=== PATIENT | female | born 1955 | race Caucasian/White ===

== ENCOUNTER 2024-07-10 11:05 | Inpatient (IN) | payer OTHER ==
[~2024-07-10] VITALS: Ht 170.2 cm; Wt 50.0 kg
[~2024-07-10 11:05] MED LIST: ACET500 PO; DOCU100 PO; ENOX40I SC; LEVSOD100 PO; LEVSOD88 PO; Lasix20 MG PO; OXYC10ER; ROXICODONE5 MG PO
[2024-07-10] MEDS ORDERED: NS 1,000 ML IV SCH ×3 (11:15→14:00)
[2024-07-10 11:35] LABS: BASOPHILS ABSOLUTE AUTO 0.08 K/mm3 (0.00-0.23); BASOPHILS PERCENT AUTO 2 % (0-2); EOSINOPHILS ABSOLUTE AUTO 0.16 K/mm3 (0.00-0.68); EOSINOPHILS PERCENT AUTO 5 % (0-6); Hematocrit 34.6 % (33.0-51.0); Hemoglobin 11.3 g/dL (11.5-16.0); IMMATURE GRAN ABSOLUTE AUTO 0.02 K/mm3 (0.00-0.10); IMMATURE GRAN PERCENT AUTO 1 % (0-1); LYMPHOCYTES PERCENT AUTO 25 % (21-46); MONOCYTES ABSOLUTE AUTO 0.45 K/mm3 (0.16-1.47); MONOCYTES PERCENT AUTO 14 % (4-13); Mean Corpuscular HGB 31.8 pg (26.0-34.0); Mean Corpuscular HGB Conc 32.7 g/dL (31.5-36.5); Mean Corpuscular Volume 98 fL (80-100); Mean Platelet Volume 12.3 fL (9.1-12.4); NEUTROPHILS ABSOLUTE AUTO 1.76 K/mm3 (1.96-9.15); NEUTROPHILS PERCENT AUTO 54 % (41-73); Platelet Count 106 K/mm3 (150-400); RDW Coefficient Variation 14.8 % (11.7-14.2); Red Blood Cell Count 3.55 M/mm3 (3.80-5.20); White Blood Cell Count 3.27 K/mm3 (4.00-11.30)
[2024-07-10 11:56] LABS: Base Excess Venous 5.1 mmol/L; PCO2 Venous 49.6 mmHg (38-42); pH Blood Venous 7.39 (7.34-7.37)
[2024-07-10 12:01] LABS: Albumin, Blood 3.6 g/dL (3.4-5.0); Bilirubin, Total 0.6 mg/dL (0.1-1.0); Bun/Creatinine Ratio 16.3 (12.0-20.0); Calcium, Blood 9.6 mg/dL (8.5-10.1); Creatinine, Blood 2.46 mg/dL (0.40-1.00); Globulin, Blood 3.5 g/dL (2.2-4.0); Magnesium, Blood 2.2 mg/dL (1.6-2.4); Potassium, Blood 3.5 mmol/L (3.5-5.5); Total Protein, Blood 7.1 g/dL (6.4-8.2)
[2024-07-10 12:15] LABS: Source, Urine Clean Catch
[2024-07-10 12:21] LABS: Appearance, Urine Hazy (Clear); Bilirubin, Urine Neg (Neg); Blood, Urine 2+ (Neg); Color, Urine Yellow (P-Yellow); Glucose Qualitative, Urine 1+ (Neg); Ketones, Urine Neg (Neg); Leukocyte Esterase, Urine 3+ (Neg); Nitrite, Urine Neg (Neg); Protein, Urine 2+ (Neg); Urobilinogen, Urine NORM (Normal)
[2024-07-10] MEDS ORDERED: CefTRIAXone Sodium 1,000 MG in NS 50 ML IV ONE (12:25)
[2024-07-10 13:18] LABS: White Blood Cells, Urine TNTC /hpf (0-5)
[2024-07-10 13:19] LABS: Bacteria Many /hpf; Squamous Epithelial Cells Rare /hpf (Few)
[2024-07-10] MEDS ORDERED: Acetaminophen 325 MG TABLET PO PRN (13:25)
[2024-07-10] MEDS ORDERED: FLU VACC TS2024-25(6MOS UP)/PF 45 MCG/0.5 ML SYRINGE IM SCH (13:25)
[2024-07-10 14:45] LABS: Influenza A, PCR NEGATIVE (NEGATIVE); Influenza B, PCR NEGATIVE (NEGATIVE); Resp Syncytial Virus, PCR NEGATIVE (NEGATIVE); SARS-Cov-2 (COVID-19) PCR, MMC NEGATIVE (NEGATIVE)
[2024-07-10 16:38] VITALS: BP 124/88
[2024-07-10 19:40] VITALS: BP 122/76
[2024-07-11 02:55] VITALS: BP 109/80
--- NOTE | 2024-07-11 04:38 | NUR ---
SHIFT SUMMARY PT IS A&O X 3-4. PT APPEARS CONFUSED AT TIMES. PT APPEARS AGITATED TOWARDS STAFF DURING EARLY AM HRS. REASSURED PER STAFF, EASILY REDIRECTABLE. PT IS INCONTINENT OF STOOL AND URINE. ATTENDS IN PLACE. PT USING CALL LIGHT FEW TIMES TO BE ASSISTED TO BEDSIDE COMMODE. WHEN STAFF ANSWERING CALL, PT REPLIES/STATES "NOT ME." PT DENIED NEED FOR COMMODE/STAFF ASSISTANCE. NS INFUSING ORDERED. TELE: V-PACED@75. PT IS SLIGHTLY [place]. PT DENIES PAIN DURING THIS SHIFT. BED ALARM FOR SAFETY. BED AT THE LOWEST POSITION, CALL LIGHT WITHIN REACH. NO ACUTE EVENTS/DISTRESS NOTED/REPORED DURING THIS SHIFT.
[2024-07-11 07:15] VITALS: BP 117/85
[2024-07-11 07:26] LABS: Bun/Creatinine Ratio 16.4 (12.0-20.0); Calcium, Blood 8.9 mg/dL (8.5-10.1); Creatinine, Blood 2.32 mg/dL (0.40-1.00); Potassium, Blood 3.7 mmol/L (3.5-5.5)
[2024-07-11] MEDS ORDERED: Levothyroxine Sodium 0.088 MG Tab PO SCH (08:00)
[2024-07-11] MEDS ORDERED: Heparin Sodium,Porcine 5,000 UNIT/0.5 ML SDV SC SCH (09:00)
[2024-07-11] MEDS ORDERED: CefTRIAXone Sodium 1,000 MG in NS 100 ML IV SCH (09:00)
[2024-07-11 11:47] LABS: Free Thyroxine 0.57 ng/dL (0.70-1.60); Triiodothyronine, Free 0.82 pg/mL (2.18-3.98)
[2024-07-11] MEDS ORDERED: FURO40 PO (14:45)
[2024-07-11] MEDS ORDERED: LEVSOD100 PO (14:45)
[2024-07-11] MEDS ORDERED: ELIQUIS5 M2 PO (14:46)
[2024-07-11] MEDS ORDERED: Carvedilol12.5 MG PO (14:46)
[2024-07-11] MEDS ORDERED: JARDIANCE25 MG PO (14:46)
[2024-07-11] MEDS ORDERED: ENTRESTO 24 MG1 EACH PO (14:46)
[2024-07-11] MEDS ORDERED: SPIR25 PO (14:46)
[2024-07-11 16:35] VITALS: BP 102/75
--- NOTE | 2024-07-11 18:39 | NUR ---
SHIFT SUMMARY PATIENT A/OX2 THSI SHIFT, FORGETFUL AND INTERMITTENTLY CONFUSED. ECHO COMPLETED TODAY, RENAL ULTRASOUND OBTAINED. PATIENT PARTICIPATED WITH PT AND ABLE TO WALK WITH NURSING STAFF MULTIPLE TIMES THROUGHOUT THE HALLWAYS, 1 PERSON ASSIST. PATIENT ALSO PROVIDED WITH RECLINER WHICH SHE WAS UP IN FOR MEAL TIME. NO OTHER CONCERNS AT THIS TIME.
[2024-07-11 19:12] VITALS: BP 111/73
[2024-07-11] MEDS ORDERED: Apixaban 5 MG Tab PO SCH (21:00)
[2024-07-12 03:22] VITALS: BP 111/79
--- NOTE | 2024-07-12 04:02 | NUR ---
SHIFT SUMMARY PT IS A&O X2-3, CONFUSED AT TIMES, COOPERATIVE WITH CARE. BED ALARM FOR SAFETY. PT IS CONTINENT/INCONTINENT, 1-PERSON ASSIST TO BEDSIDE COMMODE. TELE:AV-PACED @60. PT DENIES PAIN AND DISCOMFORT. NO ACUTE EVENTS DURING THIS SHIFT. PT RESTED APPROXIMATELY 5-6HRS DURING THE NIGHT HRS. PT IS ABLE TO MAKE HER NEEDS KNOWN, CALL LIGHT WITHIN REACH, BED AT THE LOWEST POSITION.
[2024-07-12] MEDS ORDERED: Levothyroxine Sodium 0.1 MG Tab PO SCH (06:00)
[2024-07-12] MEDS ORDERED: Levothyroxine Sodium 0.112 MG Tab PO SCH (06:00)
[2024-07-12 06:25] LABS: Bun/Creatinine Ratio 23.2 (12.0-20.0); Creatinine, Blood 1.77 mg/dL (0.40-1.00); Potassium, Blood 3.8 mmol/L (3.5-5.5)
[2024-07-12 07:49] VITALS: BP 111/73
[2024-07-12] MEDS ORDERED: Empagliflozin 25 MG TAB PO SCH (09:00)
[2024-07-12] MEDS ORDERED: Metoprolol Succinate 25 MG TABCR PO SCH ×2 (09:00)
[2024-07-12] MEDS ORDERED: Ciprofloxacin 500 MG Tab PO SCH (09:00)
[2024-07-12] MEDS ORDERED: ELIQUIS2.5 MG PO (13:26)
[2024-07-12] MEDS ORDERED: CIPR500 PO (13:28)
[2024-07-12] MEDS ORDERED: METO25ER PO (13:29)
[2024-07-12] MEDS ORDERED: FURO20 PO (13:30)
[2024-07-12] MEDS ORDERED: LEVSOD112 PO (13:30)
--- NOTE | 2024-07-12 15:01 | NUR ---
PATIENT WITH DISCHARGE ORDERS. CALLED PATIENT'S SISTER, MAK, TO NOTIFY HER AND LEFT MESSAGE. CALLED MULTIPLE TIMES THIS SHIFT IN ORDER TO SCHEDULE TRANSPORTATION FOR PATIENT TO DISCHARGE BUT HAVE NOT MADE CONTACT.
--- NOTE | 2024-07-12 17:25 | NUR ---
DISCHARGE NOTE RECIEVED TELEPHONE CALL FROM PATIENT'S SISTER, MAK, AND SHE STATED THE PATIENT'S CAREGIVER IS BRANDIN CARTERAl CASTREJON. PATIENT AND SISTER, MAK, REQUEST THAT GISELA BE ADDED TO PATIENT'S LIST OF CONTACTS. GISELA CALLED TO INFORM THAT PATIENT WAS READY FOR DISCHARGE. PIV AND TELEMETRY REMOVED PRIOR TO DISCHARGE. MEDICATION FAXED TO [facility]. MEDICATION CHANGES AND FOLLOW UP APPOINTMENTS DISCUSSED WITH PATIENT AND CAREGIVER AND BOTH AGREEABLE. CAREGIVER, GISELA, STATES THAT CARDIOLOGY APPOINTMENT IS ALREADY SCHEDULED FOR NEXT WEEK. NO OTHER CONCERNS AT TIME OF DISCHARGE. PATIENT ASSISTED TO FAMILY VEHICLE VIA WHEELCHAIR BY [facility] STAFF.
== END 2024-07-12 17:10 | disposition home health service (06) | DRG 682 ==
LOC: ER 11:05 → MEDS 14:28
PROVIDERS: Student in an Organized Health Care Education/Training Program; ADMIT Internal Medicine
DX: N17.9 Acute kidney failure, unspecified (principal); A41.51 Sepsis due to Escherichia coli [E. coli]; J96.01 Acute respiratory failure with hypoxia; R65.20 Severe sepsis without septic shock; I13.0 Hypertensive heart and chronic kidney disease with heart failure and stage 1 through stage 4 chronic kidney disease, or unspecified chronic kidney disease; I50.22 Chronic systolic (congestive) heart failure; N39.0 Urinary tract infection, site not specified; L03.115 Cellulitis of right lower limb; I48.91 Unspecified atrial fibrillation; D70.9 Neutropenia, unspecified; N18.30 Chronic kidney disease, stage 3 unspecified; E03.9 Hypothyroidism, unspecified; F17.210 Nicotine dependence, cigarettes, uncomplicated; Z71.6 Tobacco abuse counseling; Z88.5 Allergy status to narcotic agent; Z90.49 Acquired absence of other specified parts of digestive tract; Z95.0 Presence of cardiac pacemaker; Z98.890 Other specified postprocedural states; Z87.81 Personal history of (healed) traumatic fracture; Z79.890 Hormone replacement therapy; Z79.899 Other long term (current) drug therapy
CPT/HCPCS: 0241U; 36415; 71045; 76770; 80048; 80053; 81001; 82570; 82803; 83605; 83735; 83880; 84145; 84300; 84439; 84443; 84481; 84484; 85025; 85379; 87040; 87077; 87086; 87147; 87186; 93005; 93010; 97110; 97116; 97162; 99285-25; A9270; C8929; J0696; J1644; J7030; Q9957

== ENCOUNTER 2024-08-30 18:01 | Emergency (ER) | payer OTHER ==
[~2024-08-30] VITALS: Ht 170.2 cm; Wt 54.4 kg
[~2024-08-30 18:01] MED LIST changes: +CIPR500 PO; +Carvedilol12.5 MG PO; +ELIQUIS2.5 MG PO; +ELIQUIS5 M2 PO; +ENTRESTO 24 MG1 EACH PO; +FURO20 PO; +FURO40 PO; +JARDIANCE25 MG PO; +LEVSOD112 PO; +METO25ER PO; +SPIR25 PO
[2024-08-30 18:23] VITALS: BP 132/78
[2024-08-30 18:35] LABS: BASOPHILS ABSOLUTE AUTO 0.06 K/mm3 (0.00-0.23); BASOPHILS PERCENT AUTO 2 % (0-2); EOSINOPHILS ABSOLUTE AUTO 0.09 K/mm3 (0.00-0.68); EOSINOPHILS PERCENT AUTO 2 % (0-6); Hematocrit 32.6 % (33.0-51.0); Hemoglobin 10.3 g/dL (11.5-16.0); IMMATURE GRAN ABSOLUTE AUTO 0.02 K/mm3 (0.00-0.10); IMMATURE GRAN PERCENT AUTO 1 % (0-1); LYMPHOCYTES ABSOLUTE AUTO 1.27 K/mm3 (0.84-5.20); LYMPHOCYTES PERCENT AUTO 32 % (21-46); MONOCYTES ABSOLUTE AUTO 0.53 K/mm3 (0.16-1.47); MONOCYTES PERCENT AUTO 14 % (4-13); Mean Corpuscular HGB 32.1 pg (26.0-34.0); Mean Corpuscular HGB Conc 31.6 g/dL (31.5-36.5); Mean Corpuscular Volume 102 fL (80-100); Mean Platelet Volume 11.6 fL (9.1-12.4); NEUTROPHILS ABSOLUTE AUTO 1.95 K/mm3 (1.96-9.15); NEUTROPHILS PERCENT AUTO 50 % (41-73); Platelet Count 129 K/mm3 (150-400); RDW Coefficient Variation 14.5 % (11.7-14.2); Red Blood Cell Count 3.21 M/mm3 (3.80-5.20); White Blood Cell Count 3.92 K/mm3 (4.00-11.30)
[2024-08-30 18:47] LABS: Albumin/Globulin Ratio 0.8 (0.8-1.8); Bilirubin, Total 0.4 mg/dL (0.1-1.0); Bun/Creatinine Ratio 20.7 (12.0-20.0); Calcium, Blood 8.9 mg/dL (8.5-10.1); Creatinine, Blood 1.16 mg/dL (0.40-1.00); Globulin, Blood 3.9 g/dL (2.2-4.0); Potassium, Blood 4.7 mmol/L (3.5-5.5); Total Protein, Blood 6.9 g/dL (6.4-8.2)
[2024-08-30] MEDS ORDERED: Furosemide 10 MG / ML 2ML Vial IV ONE (19:10)
[2024-08-30] MEDS ORDERED: Ondansetron HCl 2 MG / ML 2ML Vial IV ONE (19:55)
[2024-08-30 20:11] LABS: Free Thyroxine 0.8 ng/dL (0.70-1.60); Magnesium, Blood 2.2 mg/dL (1.6-2.4); Thyroid Stimulating Hormone 94.1 uIU/mL (0.360-4.800)
[2024-08-30 20:12] LABS: Phosphorus, Blood 3.2 mg/dL (2.5-4.9)
[2024-08-30 20:24] LABS: Source, Urine Clean Catch
[2024-08-30 20:28] LABS: Bilirubin, Urine Neg (Neg); Blood, Urine 2+ (Neg); Glucose Qualitative, Urine Neg (Neg); Ketones, Urine Neg (Neg); Leukocyte Esterase, Urine 3+ (Neg); Nitrite, Urine Neg (Neg); Protein, Urine 3+ (Neg); Urobilinogen, Urine NORM (Normal)
[2024-08-30 20:37] LABS: Color, Urine Yellow (P-Yellow)
[2024-08-30 20:39] LABS: Amorphous Light (0-Heavy); Appearance, Urine Hazy (Clear); Bacteria Mod /hpf; Mucus Light (0-Heavy); Squamous Epithelial Cells Mod /hpf (Few)
[2024-08-30] MEDS ORDERED: CEPH500 PO (21:00)
[2024-08-30] MEDS ORDERED: METO25ER PO (21:20)
[2024-08-30] MEDS ORDERED: ELIQUIS2.5 MG PO (21:20)
[2024-08-30] MEDS ORDERED: Carvedilol12.5 MG PO (21:20)
== END 2024-08-30 21:01 | disposition home or self-care (01) ==
LOC: ER 18:01
PROVIDERS: Student in an Organized Health Care Education/Training Program
DX: I50.20 Unspecified systolic (congestive) heart failure (principal); N39.0 Urinary tract infection, site not specified; E03.9 Hypothyroidism, unspecified; F17.210 Nicotine dependence, cigarettes, uncomplicated; Z79.899 Other long term (current) drug therapy; Z88.5 Allergy status to narcotic agent
CPT/HCPCS: 80053; 81001; 83735; 83880; 84100; 84439; 84443; 84484; 85025; 93005; 93010; 96374; 99285-25; J1940